=== PATIENT | male | born 1945 | race Two or more races ===

== ENCOUNTER 2020-04-02 09:58 | Outpatient (CLI) | payer OTHER | END 2020-04-02 10:02 | disposition home or self-care (01) | LOC: SONOGRAMA 09:58 | PROVIDERS: ATTEND Pathology Anatomic Pathology & Clinical Pathology | DX: E04.1 Nontoxic single thyroid nodule (principal); E04.8 Other specified nontoxic goiter; D34 Benign neoplasm of thyroid gland; E07.89 Other specified disorders of thyroid ==

== ENCOUNTER 2021-02-08 10:01 | Outpatient (CLI) | payer OTHER | END 2021-02-08 11:17 | disposition home or self-care (01) | LOC: SONOGRAMA 10:01 | PROVIDERS: ATTEND Pathology Anatomic Pathology & Clinical Pathology | DX: E07.89 Other specified disorders of thyroid (principal) ==